=== PATIENT | female | born 1965 | race Caucasian/White ===

== ENCOUNTER 2023-01-01 12:48 | Emergency (ER) | payer OTHER, MEDICAID ==
[~2023-01-01] VITALS: Ht 165.1 cm; Wt 91.0 kg
[2023-01-01] MEDS ORDERED: IBUPROFEN 600MG TABLET PO STA (16:11)
[2023-01-01 17:23] LABS: CLARITY URINE CLOUDY (CLEAR); COLOR URINE DARK YELLOW (YELLOW); KETONES URINE TRACE (NEGATIVE); LEUKOCYTE ESTERASE URINE NEGATIVE (NEGATIVE); NITRITE URINE NEGATIVE (NEGATIVE); OCCULT BLOOD URINE NEGATIVE (NEGATIVE); PH URINE 5.5 (4.5-8.0); PROTEIN URINE 2+ (NEGATIVE); SPECIFIC GRAVITY URINE 1.034 (1.005-1.030); UROBILINOGEN URINE 0.2 E.U./dL (0.2-1.0)
[2023-01-01 17:34] LABS: *AMPHETAMINES SCREEN URINE PRESUMTIVE POSITIVE (NEGATIVE); *BARBITURATES SCREEN URINE NEGATIVE (NEGATIVE); *BENZODIAZEPINES SCREEN URINE NEGATIVE (NEGATIVE); *COCAINE SCREEN URINE NEGATIVE (NEGATIVE); CANNABINOID URINE SCREEN PRESUMTIVE POSITIVE (NEGATIVE); METHADONE URINE SCREEN NEGATIVE (NEGATIVE); OPIATES URINE SCREEN NEGATIVE (NEGATIVE); PHENCYCLIDINE URINE SCREEN NEGATIVE (NEGATIVE)
[2023-01-01 18:55] LABS: BASOPHILS % 0.4 % (0.0-2.0); EOSINOPHILS % 0.9 % (0.0-5.0); HEMATOCRIT. 39.8 % (36.0-48.0); HEMOGLOBIN. 13.8 g/dL (12.0-16.0); LYMPHOCYTES % 37.4 % (20.0-50.0); MEAN CORPUSCULAR HEMOGLOBIN 29.9 pg (28.0-32.0); MEAN CORPUSCULAR VOLUME 86.3 fL (81.0-99.0); MEAN PLATELET VOLUME 9.8 fl (7.4-10.4); MONOCYTES % 6.2 % (2.0-8.0); NEUTROPHILS % 55.1 % (40.0-76.0); PLATELET 149 x1000/uL (130-400); RED BLOOD CELL COUNT 4.62 mill/uL (4.2-5.4); RED CELL DISTRIBUTION WIDTH 13.1 % (11.6-14.6)
[2023-01-01 19:22] LABS: CHLORIDE 100 mEq/L (98-107)
[2023-01-01 19:31] LABS: ETHANOL BLOOD < 10 mg/dL
[2023-01-01] MEDS ORDERED: POTASSIUM CHLORIDE 20MEQ TABLET SR PO ONE (20:30)
[2023-01-02] MEDS ORDERED: SERTRALINE HCL 50MG TABLET PO SCH (09:00)
[2023-01-02] MEDS ORDERED: ARIPIPRAZOLE 5MG TABLET PO ONE (09:00)
[2023-01-02 15:22] VITALS: BP 195/126
[2023-01-02] MEDS ORDERED: AMLODIPINE 5MG TABLET PO ONE (15:30)
[2023-01-02] MEDS ORDERED: SERT50TA MT (17:12)
[2023-01-02] MEDS ORDERED: ABIL10 MT (17:12)
== END 2023-01-02 18:02 | disposition home or self-care (01) ==
LOC: ER 15:36
DX: R45.851 Suicidal ideations (principal); I10 Essential (primary) hypertension; E11.9 Type 2 diabetes mellitus without complications; E87.6 Hypokalemia; Z20.822 Contact with and (suspected) exposure to COVID-19; Z98.890 Other specified postprocedural states; Z59.00 Homelessness unspecified
CPT/HCPCS: 36415; 80053; 80305; 80307; 80320; 80329; 81003; 82962; 85025; 87426; 93005; 99285; C9803; G0480